=== PATIENT | female | born 1980 | race African-American/Black ===

== ENCOUNTER 2016-12-20 09:19 | Emergency (ER) | payer OTHER ==
[2016-12-20] MEDS ORDERED: PROMETHAZINE HCL INJ 25 MG/1 ML VIAL IV ONE (10:56)
[2016-12-20] MEDS ORDERED: NORMAL SALINE 1000 ML 1,000 ML IV ONE ×2 (10:56→17:53)
[2016-12-20] MEDS ORDERED: METOCLOPRAMIDE HCL INJ/PF 10 MG/2 ML SDV IV ONE (10:57)
[2016-12-20] MEDS ORDERED: MORPHINE SULFATE 10 MG/ML INJ IV ONE ×2 (10:58→19:20)
--- NOTE | 2016-12-20 11:01 | ER Document Report ---
ED General - General Chief Complaint: Abdominal Pain Stated Complaint: ABDOMINAL PAIN Time seen by provider: 10:58 Mode of Arrival: Ambulatory Information source: Patient Notes: 36-year-old female was about 2 weeks of upper abdominal pain and sensation of fullness associated with nausea and poor appetite. He reports no bowel movement in about 10 days. The patient reports a prior history of constipation but has never had symptoms this bad before. She reports she took some mag citrate and [place] oil 3 days after the symptoms began and had one bowel movement but has not had any since. Patient denies fever, chills, cough, shortness of breath, chest pain, back pain, dysuria, urgency, frequency, vaginal bleeding or discharge, hematemesis, hematochezia, or melena. She report one week ago being seen in The emergency department and had x-rays that she said looked okay says that she was told she might have irritable bowel syndrome. She reports she was seen at [facility] today and referred here because of her pain. Physical Exam: General: Alert, appears well. HEENT: Normocephalic. Atraumatic. PERRLA. Extraocular movements intact. Oropharynx clear. Neck: Supple. Non-tender. Respiratory: No respiratory distress. Clear and equal breath sounds bilaterally. Cardiovascular: Regular rate and rhythm. Abdominal: Abdomen is firm with prominent epigastric fullness. This area is mildly tender to palpation. She also has mild tenderness in the right upper quadrant. There is no guarding rebound rigidity or referred pain. Bowel sounds are positive. Back: Non-tender. No deformity or step off. Extremities: Moves all four extremities. Upper extremities: Normal inspection. Non-tender. Normal color. Normal ROM. Normal temperature. Lower extremities: Normal inspection. Non-tender. No edema. Normal color. Normal ROM. Normal temperature. Neurological: Speech clear mentation normal moves all extremities well Psychological: Normal affect. Normal Mood. Skin: Warm. Dry. Normal color. TRAVEL OUTSIDE OF THE [place] IN LAST 30 DAYS: No - Related Data Allergies/Adverse Reactions: Penicillins Allergy (Verified 12/20/16 09:29) Past Medical History - Social History Smoking Status: Never Smoker Chew tobacco use (# tins/day): No Frequency of alcohol use: None Drug Abuse: None Family History: Other - Mother with irritable bowel syndrome Patient has suicidal ideation: No Patient has homicidal ideation: No Renal/ Medical History: Denies: Hx Peritoneal Dialysis Past Surgical History: Reports: Hx Gynecologic Surgery - "TUBES OPENED" - Immunizations Hx Diphtheria, Pertussis, Tetanus Vaccination: Yes Review of Systems - Review of Systems Constitutional: denies: Chills, Fever EENT: denies: Ear pain, Throat pain Cardiovascular: denies: Chest pain, Dyspnea Respiratory: denies: Cough, Short of breath Gastrointestinal: See HPI Genitourinary: See HPI Female Genitourinary: denies: Musculoskeletal: denies: Back pain, Muscle pain Skin: denies: Rash Hematologic/Lymphatic: denies: Swollen glands Neurological/Psychological: denies: Weakness, Numbness Physical Exam - Vital signs Vitals: Temp Pulse Resp BP Pulse Ox 97.9 F 76 18 121/85 99 12/20/16 09:23 12/20/16 09:23 12/20/16 09:23 12/20/16 09:23 12/20/16 09:23 Course - Re-evaluation Re-evalutation: 12/20/16 17:49 Case was discussed with Dr. Pereira gastroenterology who recommended discussion with Gen. surgery. I discussed case with Dr. Enciso in general surgery and we reviewed the CT scan. He expresses concern that the patient on CT appears to have compression of the right kidney and compression of the inferior vena cava and believes that this is a problem best managed at a tertiary care facility preferably with hepatobiliary surgery. [facility] had no beds. [facility] had no beds. I discussed case with Dr. Rodrigo Granados of the internal medicine service at [place] who requested that we contact Dr. Moore of general surgery. He accepts the patient as an ED to ED transfer. The patient is nauseated and has received treatment for that as well as IV hydration and continues to have tenderness in the epigastric region and right upper quadrant corresponding to the location of her liver cyst. She has no peritoneal signs. - Vital Signs Vital signs: Temp Pulse Resp BP Pulse Ox 97.9 F 76 18 121/85 99 12/20/16 09:23 12/20/16 09:23 12/20/16 09:23 12/20/16 09:23 12/20/16 09:23 - Laboratory Result Diagrams: 12/20/16 11:10 12/20/16 11:10 Laboratory results interpreted by me: 12/20/16 12/20/16 11:10 11:10 Hgb 11.5 L MCV 71 L MCH 21.8 L MCHC 30.7 L RDW 14.9 H AST 97 H ALT 149 H Alkaline Phosphatase 236 H Total Protein 8.5 H - Diagnostic Test Radiology reviewed: Image reviewed, Reports reviewed Discharge - Discharge Clinical Impression: Liver cyst Abdominal pain Qualifiers: Abdominal location: right upper quadrant Qualified Code(s): R10.11 - Right upper quadrant pain Condition: Fair Disposition: [facility]
[2016-12-20 11:29] LABS: ABSOLUTE EOSINOPHILS # (AUTO) 0.1 10^3/uL (0.0-0.6); ABSOLUTE LYMPHOCYTES (AUTO) 2.4 10^3/uL (0.5-4.7); ABSOLUTE MONOCYTES (AUTO) 0.7 10^3/uL (0.1-1.4); ABSOLUTE NEUT (AUTO) 5.9 10^3/uL (1.7-8.2); BASOPHILS % (AUTO) 0.5 % (0-2); HEMATOCRIT 37.4 % (36.0-47.0); HEMOGLOBIN 11.5 g/dL (12.0-15.5); HGB HCT DIFFERENCE -2.9; MEAN CORPUSCULAR HEMOGLOBIN 21.8 pg (27.0-33.4); MEAN CORPUSCULAR HGB CONC 30.7 g/dL (32.0-36.0); MEAN CORPUSCULAR VOLUME 71 fl (80-97); MONOCYTES % (AUTO) 7.4 % (3-13); RED BLOOD COUNT 5.26 10^6/uL (3.72-5.28); RED CELL DISTRIBUTION WIDTH 14.9 % (11.5-14.0); SEGMENTED NEUTROPHILS % (AUTO) 65.1 % (42-78); WHITE BLOOD COUNT 9.1 10^3/uL (4.0-10.5)
[2016-12-20 11:47] LABS: ALANINE AMINOTRANSFERASE 149 U/L (9-52); ALBUMIN 3.9 g/dL (3.5-5.0); ALKALINE PHOSPHATASE 236 U/L (38-126); ANION GAP 10 (5-19); ASPARTATE AMINO TRANSFERASE 97 U/L (14-36); BILIRUBIN,TOTAL 0.7 mg/dL (0.2-1.3); BLOOD UREA NITROGEN 10 mg/dL (7-20); CALCIUM 9.7 mg/dL (8.4-10.2); CARBON DIOXIDE 26 mmol/L (22-30); CHLORIDE 103 mmol/L (98-107); CREATININE RESULT 0.85 mg/dL (0.52-1.25); GLUCOSE 84 mg/dL (75-110); LIPASE 52.6 U/L (23-300); SODIUM 139.2 mmol/L (137-145); TOTAL PROTEIN 8.5 g/dL (6.3-8.2)
[2016-12-20 13:42] LABS: APPEARANCE,URINE CLEAR; BILIRUBIN,URINE NEGATIVE (NEGATIVE); GLUCOSE, URINE NEGATIVE (NEGATIVE); KETONES,URINE NEGATIVE (NEGATIVE); LEUKOCYTE ESTERASE,URINE NEGATIVE (NEGATIVE); NITRITE,URINE NEGATIVE (NEGATIVE); PROTEIN,URINE NEGATIVE (NEGATIVE); URINE SPECIFIC GRAVITY 1.009; UROBILINOGEN,URINE NEGATIVE mg/dL (<2.0)
[2016-12-20] MEDS ORDERED: ONDANSETRON HCL INJ/PF 4 MG/2 ML SDV IV ONE ×2 (15:48→23:45)
[2016-12-21 01:14] VITALS: BP 110/78
[2016-12-21] MEDS ORDERED: HYDROMORPHONE HCL INJ/PF 2 MG/ML AMPULE IV ONE (02:13)
[2016-12-21] MEDS ORDERED: HYDROMORPHONE HCL INJ/PF 2 MG/ML AMPULE ONE (02:13)
== END 2016-12-21 02:25 | disposition short-term general hospital (02) ==
LOC: ER 09:19
DX: K76.89 Other specified diseases of liver (principal); R10.11 Right upper quadrant pain; R11.0 Nausea; R63.0 Anorexia; R19.4 Change in bowel habit; Z87.19 Personal history of other diseases of the digestive system; Z83.79 Family history of other diseases of the digestive system
CPT/HCPCS: 96376; 99285; 96361; 96374; 96375; 36415; 83690; 85025; 81025; 80053; 81001; 74177; J2765; J2270; J1170; J2405; J7030